=== PATIENT | female | born 1950 | race Caucasian/White ===

== ENCOUNTER 2018-10-30 05:25 | Inpatient (IN) | payer MEDICARE ==
[2018-10-30 06:44] LABS: #Eosinphils 0.1 thou/uL (0.0-0.7); #Monocytes 0.5 thou/uL (0.11-0.59); #Neutrophils 6.6 thou/uL (1.40-6.50); %Basophils 0.5 % (0.0-1.0); %Eosinophils 1.1 % (0.0-10.0); %Lymphocytes 21.8 % (21.0-51.0); %Monocytes 5.8 % (0.0-10.0); %Neutrophils 70.8 % (42.0-75.0); Hemoglobin 12.9 g/dL (12.0-16.0); Mean Corpuscular HGB CONC 33.3 g/dL (32.0-36.0); Mean Platelet Volume 8.4 fL (7.4-10.4); Platelet Count 255 thou/uL (130-400); RBC Distribution Width 11.4 % (11.5-14.5); Red Blood Cell (RBC) Count 4.46 mill/uL (4.20-5.40); White Blood Cell (WBC) Count 9.3 thou/uL (4.8-10.8)
[2018-10-30 06:59] LABS: ALT (SGPT) 8 U/L (8-55); AST (SGOT) 14 U/L (5-34); Albumin 3.1 g/dL (3.4-4.8); Alkaline Phosphatase 82 U/L (40-150); Anion Gap 15 mmol/L (10-20); BUN (Urea Nitrogen) 8 mg/dL (9.8-20.1); Bilirubin, Total 0.6 mg/dL (0.2-1.2); Calc. Creatinine Clearance 0 mL/min (70-130); Calcium 8.7 mg/dL (7.8-10.44); Carbon Dioxide 28 mmol/L (23-31); Chloride 99 mmol/L (98-107); Estimated GFR-MDRD 70; Globulin 4.6 g/dL (2.4-3.5); Glucose 302 mg/dL (80-115); Potassium 3.6 mmol/L (3.5-5.1); Protein, Total 7.7 g/dL (6.0-8.3); Sodium 138 mmol/L (136-145)
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
[2018-10-30] MEDS ORDERED: Insulin Regular 300 UNITS/3 ML VIAL ONE (08:06)
[2018-10-30] MEDS ORDERED: Ketorolac Tromethamine 30 MG/ML VIAL ONE (08:30)
[2018-10-30] MEDS ORDERED: Fentanyl 100 MCG/2 ML VIAL ONE ×2 (09:06→11:24)
[2018-10-30] MEDS ORDERED: Rocuronium Bromide 10 MG/ML (10ML VIAL) ONE (10:02)
[2018-10-30] MEDS ORDERED: Succinylcholine Chloride 20 MG/ML 10 ml SYRINGE FS ONE (10:02)
[2018-10-30] MEDS ORDERED: Lidocaine 1% PF 5 ML VIAL ONE (10:02)
[2018-10-30] MEDS ORDERED: ePHEDrine 50 MG/ML VIAL ONE (10:02)
[2018-10-30] MEDS ORDERED: Glycopyrrolate 0.2 MG/ML 5 ML SYRINGE ONE (10:02)
[2018-10-30] MEDS ORDERED: PHENYLEPHRINE-NS 100 MCG/ML 10 ML SYRINGE ONE ×2 (10:02→10:34)
[2018-10-30] MEDS ORDERED: PROPOFOL 200 MG/20 ML VIAL ONE (10:02)
[2018-10-30] MEDS ORDERED: Phenylephrine HCL 10 MG/ML VIAL ONE (10:34)
[2018-10-30] MEDS ORDERED: Ondansetron ODT 4 MG TAB PO PRN (10:58)
[2018-10-30] MEDS ORDERED: Dextrose 50% Abboject 50 ML SYRINGE SLOW IVP PRN (10:58)
[2018-10-30] MEDS ORDERED: Ondansetron PF 4 MG/2 ML Vial IVP PRN (10:58)
[2018-10-30] MEDS ORDERED: Dextrose 5% in Water 1,000 ML IV PRN (10:58)
[2018-10-30] MEDS ORDERED: hydrALAZINE 20 MG/ML VIAL SLOW IVP PRN (10:58)
[2018-10-30] MEDS ORDERED: traMADol HCl 50 MG TAB PO PRN (11:03)
[2018-10-30] MEDS ORDERED: Promethazine HCl 25 MG/ML VIAL SLOW IVP PRN (11:12)
[2018-10-30] MEDS ORDERED: Morphine Sulfate 2 MG/ML SYRINGE SLOW IVP PRN (11:12)
[2018-10-30] MEDS ORDERED: Ondansetron HCl/PF 4 MG/2 ML Vial IVP PRN (11:12)
[2018-10-30] MEDS ORDERED: Promethazine HCl 25 MG/ML VIAL IM PRN (11:12)
[2018-10-30] MEDS ORDERED: HYDROmorphone 2 MG/ML VIAL SLOW IVP PRN (11:12)
--- NOTE | 2018-10-30 12:25 | OP ---
DATE OF PROCEDURE: 10/30/2018 PREOPERATIVE DIAGNOSES: Acute cholecystitis, cholelithiasis, morbid obesity, sleep apnea, abnormal preoperative EKG. POSTOPERATIVE DIAGNOSES: Acute cholecystitis, cholelithiasis, morbid obesity, sleep apnea, abnormal preoperative EKG, markedly scarred gallbladder. PROCEDURE PERFORMED: Laparoscopic video cholecystectomy, #19 Gold round HANSA drain. ANESTHESIA: General, local 0.5% Marcaine with epinephrine 30 mL. DESCRIPTION OF PROCEDURE: The patient was taken to the operating room where under general anesthesia, abdomen was prepared with ChloraPrep and draped in routine fashion. Local anesthetic was infiltrated in the skin and subcutaneous tissue about each port site. Supraumbilical incision was made. Pneumoperitoneum to 15 mmHg was obtained with a Veress needle, replacing with a 5 port, video laparoscope inserted. A right subxiphoid incision was made and an 11 port placed. Right subcostal incision was made, midclavicular and anterior axillary lines, a 5 port was placed. Liver appeared to be slightly fatty, but normal otherwise. There was an acute inflammatory action with omentum adherent to the gallbladder. This was a very difficult dissection and it was tightly scarred. Careful dissection revealed the gallbladder fundus, which was hard and firm. It was grasped at the cephalad. Careful dissection was carried down to the infundibulum, where there was intense inflammatory reaction. I carefully dissected free around the gallbladder side, free inflammatory reactions. I did identify the gallbladder well away from the maxwell hepatis and careful dissection revealed the cystic duct, where clip was applied and careful dissection freed the gallbladder from the gallbladder bed using cautery. Good hemostasis was obtained with the cautery. Gallbladder removed in EndoBag. Area was irrigated, irrigant evacuated. Dilcia applied. #19 Gold HANSA drain placed through the lateral port site and secured with 2 sutures of 3-0 nylon. Pneumoperitoneum evacuated. All instruments were removed. All skin incisions were approximated with subdural 4-0 Monocryl after subxiphoid fascia was approximated with 0 Vicryl UR needle. Job ID: [id number]
[2018-10-30 13:16] VITALS: BMI 57.2
[2018-10-30] MEDS: traMADol HCl 50 MG TAB PO PRN ×2 (14:16→19:38)
[2018-10-30] MEDS: Lactated Ringer's 1,000 ML IV SCH ×2 (14:16→18:33)
[2018-10-30] MEDS: Ibuprofen 600 MG TAB PO PRN (16:13)
[2018-10-30] MEDS: metFORMIN 500 MG TAB PO SCH (16:13)
[2018-10-30] MEDS: HumaLOG 300 UNITS/3 ML VIAL SC PRN ×2 (16:18→21:25)
--- NOTE | 2018-10-30 16:34 | RAD ---
PA AND LATERAL CHEST: History: Chest pain. FINDINGS: The heart is enlarged. The lungs are expanded without lobar consolidation, pneumothoraces or pleural effusions. There is no evidence of lu pulmonary edema. There are mild degenerative changes in the spine. IMPRESSION: Cardiomegaly. POS: JEFFH
[2018-10-30] MEDS: Enoxaparin Sodium 40 MG/0.4 ML SYRINGE SC SCH ×2 (21:24→21:33)
[2018-10-30] MEDS: Famotidine 20 MG TAB PO SCH (21:24)
[2018-10-30] MEDS: Rosuvastatin 10 MG TAB PO SCH (21:24)
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
[2018-10-31] MEDS: Lactated Ringer's 1,000 ML IV SCH ×3 (03:20→22:45)
[2018-10-31] MEDS: traMADol HCl 50 MG TAB PO PRN ×2 (03:21→10:31)
[2018-10-31 05:10] LABS: ALT (SGPT) 13 U/L (8-55); AST (SGOT) 24 U/L (5-34); Albumin 2.6 g/dL (3.4-4.8); Alkaline Phosphatase 66 U/L (40-150); Anion Gap 13 mmol/L (10-20); BUN (Urea Nitrogen) 6 mg/dL (9.8-20.1); Bilirubin, Total 0.7 mg/dL (0.2-1.2); Calc. Creatinine Clearance 168 mL/min (70-130); Calcium 8.1 mg/dL (7.8-10.44); Carbon Dioxide 26 mmol/L (23-31); Chloride 102 mmol/L (98-107); Estimated GFR-MDRD 80; Glucose 270 mg/dL (80-115); Potassium 3.8 mmol/L (3.5-5.1); Protein, Total 6.6 g/dL (6.0-8.3); Sodium 137 mmol/L (136-145)
[2018-10-31 05:16] LABS: Band 1 % (5-11); Hemoglobin 10.9 g/dL (12.0-16.0); Hypochromia SLIGHT = 6-15 cells (100X) (0-5/hpf); Lymphocytes 12 % (21-51); MDiff Complete? YES; Mean Corpuscular HGB CONC 33.4 g/dL (32.0-36.0); Mean Corpuscular Hemoglobin 29.7 pg (27.0-31.0); Mean Corpuscular Volume 88.8 fL (78.0-98.0); Mean Platelet Volume 9.2 fL (7.4-10.4); Monocytes 1 % (0-10); Neutrophil 86 % (42-75); Platelet Count 200 thou/uL (130-400); Platelet Morphology Comment Appears Adequate; RBC Distribution Width 11.6 % (11.5-14.5); Red Blood Cell (RBC) Count 3.67 mill/uL (4.20-5.40); White Blood Cell (WBC) Count 12.1 thou/uL (4.8-10.8)
[2018-10-31] MEDS: HumaLOG 300 UNITS/3 ML VIAL SC PRN ×2 (05:55→16:12)
[2018-10-31] MEDS: metFORMIN 500 MG TAB PO SCH ×2 (08:28→16:00)
[2018-10-31] MEDS: Famotidine 20 MG TAB PO SCH ×2 (08:29→21:09)
[2018-10-31] MEDS: Aspirin 81 mg Enteric Coated Tablet PO SCH (08:29)
--- NOTE | 2018-10-31 10:07 | PDOC.PN ---
- Subjective Encounter Start Date: 10/31/18 Encounter Start Time: 08:50 -: old records requested/rev Patient seen and examined. No new complaints. No overnight events - Objective MAR Reviewed: Yes Vital Signs & Weight: Vital Signs (12 hours) Temp Pulse Resp BP Pulse Ox 10/31/18 07:45 98.5 F 100 16 153/88 H 93 L 10/31/18 04: 97.8 F 98 20 153/93 H 96 10/31/18 04:14 98 10/31/18 03:30 94 L 10/31/18 03:03 95 10/31/18 00:16 98.8 F 103 H 20 138/73 95 Weight Weight 313 lb 0.902 oz I&O: 10/30/18 10/31/18 11/01/18 06:59 06:59 06:59 Intake Total 2740 Output Total 315 Balance 2425 Result Diagrams: 10/31/18 04:35 10/31/18 04:35 Additional Labs: Accuchecks 10/31/18 10/30/18 10/30/18 05:33 20:48 15:37 POC Glucose 286 H 223 H 279 H 10/30/18 10/30/18 10/30/18 11:34 10:31 09:51 POC Glucose 194 H 233 H 303 H Radiology Reviewed by me: Yes (echo reviewed) Phys Exam - Physical Examination Constitutional: NAD HEENT: PERRLA, moist MMs, sclera anicteric Neck: no JVD, supple Respiratory: no wheezing, no rales, no rhonchi Cardiovascular: RRR, no significant murmur, no rub Gastrointestinal: soft, no distention, positive bowel sounds drain+ morbid obesity+ Musculoskeletal: no edema, pulses present Neurological: non-focal, normal sensation, moves all 4 limbs Lymphatic: no nodes Psychiatric: normal affect, A&O x 3 Skin: no rash, normal turgor Dx/Plan (1) Cholecystitis with cholelithiasis Code(s): K80.10 - CALCULUS OF GALLBLADDER W CHRONIC CHOLECYST W/O OBSTRUCTION Status: Acute (2) S/P laparoscopic cholecystectomy Code(s): Z90.49 - ACQUIRED ABSENCE OF OTHER SPECIFIED PARTS OF DIGESTIVE TRACT Status: Acute (3) Asthma Code(s): J45.909 - UNSPECIFIED ASTHMA, UNCOMPLICATED Status: Chronic (4) Diabetes type 2, controlled Code(s): E11.9 - TYPE 2 DIABETES MELLITUS WITHOUT COMPLICATIONS Status: Chronic (5) Hypertension Code(s): I10 - ESSENTIAL (PRIMARY) HYPERTENSION Status: Chronic (6) Morbid obesity with BMI of 50.0-59.9, adult Code(s): E66.01 - MORBID (SEVERE) OBESITY DUE TO EXCESS CALORIES; Z68.43 - BODY MASS INDEX (BMI) 50-59.9, ADULT Status: Chronic - Plan cont current plan of care, continue antibiotics * medication reviewed as below * symptomatic treatment * continue levaquin * pain control. * start ambulating with walking program * discharge planning * drain care as per surgeon * medically stable for now Review of Systems - Review of Systems ENT: negative: Ear Pain, Ear Discharge, Nose Pain, Nose Discharge, Nose Congestion, Mouth Pain, Mouth Swelling, Throat Pain, Throat Swelling, Other Respiratory: negative: Cough, Dry, Shortness of Breath, Hemoptysis, SOB with Excertion, Pleuritic Pain, Sputum, Wheezing Cardiovascular: negative: chest pain, palpitations, orthopnea, paroxysmal nocturnal dyspnea, edema, light headedness, other Gastrointestinal: negative: Nausea, Vomiting, Abdominal Pain, Diarrhea, Constipation, Melena, Hematochezia, Other Genitourinary: negative: Dysuria, Frequency, Incontinence, Hematuria, Retention , Other Musculoskeletal: negative: Neck Pain, Shoulder Pain, Arm Pain, Back Pain, Hand Pain, Leg Pain, Foot Pain, Other Skin: negative: Rash, Lesions, Son, Bruising, Other - Medications/Allergies Allergies/Adverse Reactions: Allergies Allergy/AdvReac Type Severity Reaction Status Date / Time codeine Allergy Hives Verified 10/30/18 13:17 Medications: Current Medications Albuterol/Ipratropium (Duoneb) 3 ml EZPAP [id number] PRN PRN Reason: SOB &/or Wheezing Last Admin: 10/31/18 04:14 Dose: 3 ml Aspirin (Ecotrin) 81 mg PO DAILY [facility] Last Admin: 10/31/18 08:29 Dose: 81 mg Dextrose/Water (Dextrose 50%) 25 gm SLOW IVP PRN PRN PRN Reason: Hypoglycemia Enoxaparin Sodium (Lovenox) 40 mg SC 2100 [facility] Last Admin: 10/30/18 21:33 Dose: Not Given Famotidine (Pepcid) 20 mg PO BID [facility] Last Admin: 10/31/18 08:29 Dose: 20 mg Glucagon (Glucagon) 1 mg IM PRN PRN PRN Reason: Hypoglycemia Hydralazine HCl (Apresoline) 10 mg SLOW IVP Q4H PRN PRN Reason: SBP > 170 or DBP > 100 Dextrose/Water (D5w) 1,000 mls @ 0 mls/hr IV .Q0M PRN PRN Reason: Hypoglycemia Lactated Ringer's (Lactated Ringer's) 1,000 mls @ 120 mls/hr IV .Q8H20M [facility] Last Admin: 10/31/18 08:29 Dose: Not Given Levofloxacin 750 mg/ Device 150 mls @ 100 mls/hr IVPB 0600 [facility] Last Admin: 10/31/18 05:42 Dose: 150 mls Ibuprofen (Motrin) 600 mg PO Q6H PRN PRN Reason: Mild Pain (1-3) Last Admin: 10/30/18 16:13 Dose: 600 mg Insulin Human Lispro (Humalog) 0 units SC .AGGRESSIVE SLIDING PRN PRN Reason: Aggressive Correctional Scale Last Admin: 10/31/18 05:55 Dose: 9 unit Metformin HCl (Glucophage) 1,000 mg PO BID[facility] Last Admin: 10/31/18 08:28 Dose: 1,000 mg Ondansetron HCl (Zofran Odt) 4 mg PO Q6H PRN PRN Reason: Nausea/Vomiting Ondansetron HCl (Zofran) 4 mg IVP Q6H PRN PRN Reason: Nausea Rosuvastatin Calcium (Crestor) 10 mg PO [facility] Last Admin: 10/30/18 21:24 Dose: 10 mg Sodium Chloride (Flush - Normal Saline) 10 ml IVF PRN PRN PRN Reason: Saline Flush Tramadol HCl (Ultram) 50 mg PO Q6H PRN PRN Reason: Moderate Pain (4-6) Tramadol HCl (Ultram) 100 mg PO Q6H PRN PRN Reason: Severe Pain (7-10) Last Admin: 10/31/18 03:21 Dose: 100 mg
[2018-10-31] MEDS ORDERED: Insulin Glargine 8 UNITS in Pre-Filled Syringe 1 EACH SC SCH ×2 (11:45→21:00)
--- NOTE | 2018-10-31 14:35 | PRG ---
DATE OF SERVICE: 10/31/2018 SUBJECTIVE: Ms. Ontiveros is a 68-year-old morbidly obese woman, who is postoperative day #1, status post laparoscopic cholecystectomy. The patient is awake and alert today. She reports better pain control. She is quite fatigued, requiring 1 to 2 people for assistance getting out of bed. She admits to residual nausea, but has not had any emesis since surgery. OBJECTIVE: VITAL SIGNS: Today include blood pressure 153/88, pulse 100, respiratory rate 16, temperature 98.5 degrees Fahrenheit, and oxygen saturation 93% on room air. HEENT: Pupils are equal, round, and reactive to light and accommodation. HEART: Reveals regular rate and rhythm. LUNGS: Clear to auscultation bilaterally. Breathing, regular and nonlabored. ABDOMEN: Soft and obese with incisional tenderness to palpation. No gross rebound tenderness present. All incisions remain intact, clean, and dry. Dg-Durham drain placed in surgery has returned approximately 300 mL of serosanguineous clearly nonbilious fluid. NEUROLOGIC: Reveals no focal deficits present. LABORATORY FINDINGS: Today include CBC with 12,100 white blood cells and hemoglobin and hematocrit of 10.9 and 32.6 respectively. Platelet count is 200,000. Metabolic profile; sodium 137, potassium 3.8, chloride is 102, bicarb 26, BUN 6, creatinine 0.73, and glucose 270. AST and ALT normal at 24 and 13 respectively. Total bilirubin is also normal at 0.7. IMPRESSION: 1. Postoperative day #1 status post laparoscopic cholecystectomy. 2. Stable acute hyperglycemia. History of type 2 diabetes mellitus. 3. Stable postoperative acute blood loss anemia. PLAN: Increase activity per Physical Therapy. We will ask ed case manager to evaluate the patient for possible discharge to rehabilitation. Above findings and plan discussed with the patient, who indicates understanding information given. I have answered her questions. Job ID: [id number]
[2018-10-31] MEDS: Ibuprofen 600 MG TAB PO PRN (21:09)
[2018-10-31] MEDS: Rosuvastatin 10 MG TAB PO SCH (21:09)
[2018-10-31] MEDS: Enoxaparin Sodium 40 MG/0.4 ML SYRINGE SC SCH (22:46)
[2018-11-01] MEDS: Lactated Ringer's 1,000 ML IV SCH ×2 (05:05→13:18)
[2018-11-01] MEDS: HumaLOG 300 UNITS/3 ML VIAL SC PRN ×4 (05:26→20:48)
[2018-11-01] MEDS ORDERED: cloNIDine 0.1 MG TAB PO PRN (08:32)
[2018-11-01] MEDS ORDERED: Insulin Glargine 8 UNITS in Pre-Filled Syringe 1 EACH SC SCH (09:00)
[2018-11-01] MEDS: Famotidine 20 MG TAB PO SCH ×2 (09:36→20:47)
[2018-11-01] MEDS: Aspirin 81 mg Enteric Coated Tablet PO SCH (09:36)
[2018-11-01] MEDS: metFORMIN 500 MG TAB PO SCH (09:38)
[2018-11-01] MEDS: Lisinopril 5 MG TAB PO SCH ×2 (09:39→20:53)
[2018-11-01] MEDS: Ibuprofen 600 MG TAB PO PRN (16:05)
--- NOTE | 2018-11-01 16:42 | PDOC.PN ---
- Subjective Encounter Start Date: 11/01/18 Encounter Start Time: 16:40 Subjective: s/p lap ayan & feels well. able to eat w/o abd pain or nausea -: at bedside & all Qs answered - Objective Resuscitation Status - Order Detail: 10/31/18 10:06 Resuscitation Status Routine Resuscitation Status: FULL: Full Resuscitation MAR Reviewed: Yes Vital Signs & Weight: Vital Signs (12 hours) Temp Pulse Pulse Pulse Resp BP BP 11/01/18 15:57 98.5 F 100 20 11/01/18 11:14 98.5 F 85 16 11/01/18 10:23 86 97 139/71 187/91 H 11/01/18 09:39 93 11/01/18 08:00 11/01/18 07:51 98.4 F 93 18 BP Pulse Ox Pulse Ox Pulse Ox 11/01/18 15:57 175/82 H 91 L 11/01/18 11:14 137/85 91 L 11/01/18 10:23 96 96 11/01/18 09:39 11/01/18 08:00 92 L 11/01/18 07:51 162/99 H 92 L Weight Weight 313 lb 0.902 oz I&O: 10/31/18 11/01/18 11/02/18 06:59 06:59 06:59 Intake Total 2740 1250 Output Total 315 110 Balance 2425 1140 Result Diagrams: 10/31/18 04:35 10/31/18 04:35 Additional Labs: Accuchecks 11/01/18 11/01/18 11/01/18 15:45 11:13 05:26 POC Glucose 194 H 230 H 220 H 10/31/18 21:03 POC Glucose 175 H Laboratory Tests 10/30/18 10/31/18 06:38 04:35 WBC 9.3 12.1 H Hgb 12.9 10.9 L Phys Exam - Physical Examination Constitutional: NAD HEENT: PERRLA, moist MMs, sclera anicteric, oral pharynx no lesions Neck: no nodes, no JVD, supple, full ROM Respiratory: no wheezing, no rales, no rhonchi, clear to auscultation bilateral Cardiovascular: RRR, no significant murmur, no rub Gastrointestinal: soft, non-tender, no distention, positive bowel sounds morbidly obese.incision site looks clean Musculoskeletal: no edema, pulses present Neurological: non-focal, normal sensation, moves all 4 limbs Psychiatric: normal affect, A&O x 3 Dx/Plan (1) Cholecystitis with cholelithiasis Code(s): K80.10 - CALCULUS OF GALLBLADDER W CHRONIC CHOLECYST W/O OBSTRUCTION Status: Acute Plan: CONTINUE EMPIRIC ANTIBIOTICS (2) Postoperative anemia Code(s): D64.9 - ANEMIA, UNSPECIFIED Status: Acute Comment: Monitor.H/O GIB per Pt.Careful w ASA. (3) S/P laparoscopic cholecystectomy Code(s): Z90.49 - ACQUIRED ABSENCE OF OTHER SPECIFIED PARTS OF DIGESTIVE TRACT Status: Acute Comment: POST-OP CARE (4) Asthma Code(s): J45.909 - UNSPECIFIED ASTHMA, UNCOMPLICATED Status: Chronic Comment : STABLE (5) Diabetes type 2, controlled Code(s): E11.9 - TYPE 2 DIABETES MELLITUS WITHOUT COMPLICATIONS Status: Chronic Comment: HOLD METFORMIN TO AVOID ISAIAH/ACIDOSIS.CONT ISS AND ACCUCHECKS ACHS (6) Hypertension Code(s): I10 - ESSENTIAL (PRIMARY) HYPERTENSION Status: Chronic Comment: POORLY CONTROLLED. ADD LISINOPRIL GIVEN H/O DM2 AND MONITOR (7) Morbid obesity with BMI of 50.0-59.9, adult Code(s): E66.01 - MORBID (SEVERE) OBESITY DUE TO EXCESS CALORIES; Z68.43 - BODY MASS INDEX (BMI) 50-59.9, ADULT Status: Chronic (8) H/O: GI bleed Code(s): Z87.19 - PERSONAL HISTORY OF OTHER DISEASES OF THE DIGESTIVE SYSTEM Status: Chronic Comment: as per pt -due to ASA per pt - Plan plan discussed w/ family, continue antibiotics, PT/OT, respiratory therapy, incentive spirometry, out of bed/ambulate, DVT proph w/SCDs add PPI .monitor H/H. -: am labs -: add lisinopril for as BP still high.pt educated -: Hd stable otherwise. -: IM team will follow.requesting HH-will place CM consult * . Review of Systems - Review of Systems Constitutional: weakness, malaise. negative: fever, chills, sweats, other ENT: negative: Ear Pain, Ear Discharge, Nose Pain, Nose Discharge, Nose Congestion, Mouth Pain, Mouth Swelling, Throat Pain, Throat Swelling, Other Respiratory: negative: Cough, Dry, Shortness of Breath, Hemoptysis, SOB with Excertion, Pleuritic Pain, Sputum, Wheezing Cardiovascular: negative: chest pain, palpitations, orthopnea, paroxysmal nocturnal dyspnea, edema, light headedness, other Gastrointestinal: negative: Nausea, Vomiting, Abdominal Pain, Diarrhea, Constipation, Melena, Hematochezia, Other Genitourinary: negative: Dysuria, Frequency, Incontinence, Hematuria, Retention , Other Musculoskeletal: negative: Neck Pain, Shoulder Pain, Arm Pain, Back Pain, Hand Pain, Leg Pain, Foot Pain, Other Neurological: negative: Weakness, Numbness, Incoordination, Change in Speech, Confusion, Seizures, Other - Medications/Allergies Allergies/Adverse Reactions: Allergies Allergy/AdvReac Type Severity Reaction Status Date / Time codeine Allergy Hives Verified 10/30/18 13:17 Medications: Current Medications Albuterol/Ipratropium (Duoneb) 3 ml EZPAP [id number] PRN PRN Reason: SOB &/or Wheezing Last Admin: 10/31/18 14:16 Dose: 3 ml Aspirin (Ecotrin) 81 mg PO DAILY [facility] Last Admin: 11/01/18 09:36 Dose: 81 mg Clonidine (Catapres) 0.1 mg PO Q4H PRN PRN Reason: SBP>160 Dextrose/Water (Dextrose 50%) 25 gm SLOW IVP PRN PRN PRN Reason: Hypoglycemia Enoxaparin Sodium (Lovenox) 40 mg SC 2100 [facility] Last Admin: 10/31/18 22:46 Dose: Not Given Famotidine (Pepcid) 20 mg PO BID [facility] Last Admin: 11/01/18 09:36 Dose: 20 mg Glucagon (Glucagon) 1 mg IM PRN PRN PRN Reason: Hypoglycemia Hydralazine HCl (Apresoline) 10 mg SLOW IVP Q4H PRN PRN Reason: SBP > 170 or DBP > 100 Dextrose/Water (D5w) 1,000 mls @ 0 mls/hr IV .Q0M PRN PRN Reason: Hypoglycemia Lactated Ringer's (Lactated Ringer's) 1,000 mls @ 120 mls/hr IV .Q8H20M [facility] Last Admin: 11/01/18 13:18 Dose: Not Given Levofloxacin 750 mg/ Device 150 mls @ 100 mls/hr IVPB 0600 [facility] Last Admin: 11/01/18 05:22 Dose: 150 mls Insulin Glargine 10 units/ (Miscellaneous Medication) 0.1 mls @ 0 mls/hr SC HS [facility] Insulin Glargine 10 units/ (Miscellaneous Medication) 0.1 mls @ 0 mls/hr SC QAM [facility] Ibuprofen (Motrin) 600 mg PO Q6H PRN PRN Reason: Mild Pain (1-3) Last Admin: 11/01/18 16:05 Dose: 600 mg Insulin Human Lispro (Humalog) 0 units SC .AGGRESSIVE SLIDING PRN PRN Reason: Aggressive Correctional Scale Last Admin: 11/01/18 16:05 Dose: 3 unit Lisinopril (Zestril) 5 mg PO BID [facility] Last Admin: 11/01/18 09:39 Dose: 5 mg Ondansetron HCl (Zofran Odt) 4 mg PO Q6H PRN PRN Reason: Nausea/Vomiting Ondansetron HCl (Zofran) 4 mg IVP Q6H PRN PRN Reason: Nausea Rosuvastatin Calcium (Crestor) 10 mg PO HS [facility] Last Admin: 10/31/18 21:09 Dose: 10 mg Sodium Chloride (Flush - Normal Saline) 10 ml IVF PRN PRN PRN Reason: Saline Flush Tramadol HCl (Ultram) 50 mg PO Q6H PRN PRN Reason: Moderate Pain (4-6) Last Admin: 10/31/18 21:10 Dose: 50 mg Tramadol HCl (Ultram) 100 mg PO Q6H PRN PRN Reason: Severe Pain (7-10) Last Admin: 10/31/18 10:31 Dose: 100 mg
[2018-11-01] MEDS: Rosuvastatin 10 MG TAB PO SCH (20:47)
[2018-11-01] MEDS: Enoxaparin Sodium 40 MG/0.4 ML SYRINGE SC SCH (20:49)
[2018-11-01] MEDS ORDERED: Insulin Glargine 10 UNITS in Pre-Filled Syringe 1 EACH SC SCH (21:00)
--- NOTE | 2018-11-01 21:42 | PRG ---
DATE OF SERVICE: 11/01/2018 This is Edwin Nathan PA-C dictating a report for Michael Krishnamurthy DO. SUBJECTIVE: The patient is currently on the surgical floor. She is status post laparoscopic cholecystectomy, postop day #2. The patient had no issues overnight. She is tolerating a diet. Her pain is controlled. She has been ambulating with Physical Therapy. OBJECTIVE: VITAL SIGNS: Temperature is 98.5, heart rate 85, blood pressure 137/85, respirations 16, and oxygen saturation 91% on room air. GENERAL: The patient is resting comfortably in bed. She is just returned from ambulating with therapy. HEENT: Unremarkable. LUNGS: The patient appears to be breathing without effort, in no distress and unlabored. ABDOMEN: Soft, flat, nontender. Her Dg-Durham drain has minimal amount of thin bloody fluid in it with a report of 110 mL for the previous 24 hours. EXTREMITIES: Neurovascularly intact x4. LABORATORY DATA AND IMAGING STUDIES: There are no labs or radiographs to review this morning. ASSESSMENT: Status post laparoscopic cholecystectomy, postoperative day 2. PLAN: Plan will be to discontinue her HANSA drain today and most likely discharge home tomorrow. The patient was in agreement with this plan. The evaluation and examination were done with Dr. Krishnamurthy this morning during rounds. Job ID: [id number]
[2018-11-02] MEDS: Lactated Ringer's 1,000 ML IV SCH ×2 (00:48→07:32)
[2018-11-02 04:50] LABS: #Eosinphils 0.1 thou/uL (0.0-0.7); #Lymphocytes 1.9 thou/uL (1.20-3.40); #Monocytes 0.7 thou/uL (0.11-0.59); #Neutrophils 6.6 thou/uL (1.40-6.50); %Basophils 0.1 % (0.0-1.0); %Eosinophils 1.4 % (0.0-10.0); %Lymphocytes 20.7 % (21.0-51.0); %Neutrophils 70.8 % (42.0-75.0); Hemoglobin 11.5 g/dL (12.0-16.0); Mean Corpuscular HGB CONC 32.5 g/dL (32.0-36.0); Mean Corpuscular Hemoglobin 28.8 pg (27.0-31.0); Mean Corpuscular Volume 88.5 fL (78.0-98.0); Platelet Count 208 thou/uL (130-400); RBC Distribution Width 11.7 % (11.5-14.5); Red Blood Cell (RBC) Count 3.98 mill/uL (4.20-5.40); White Blood Cell (WBC) Count 9.3 thou/uL (4.8-10.8)
[2018-11-02 05:03] LABS: Anion Gap 10 mmol/L (10-20); BUN (Urea Nitrogen) 5 mg/dL (9.8-20.1); Calc. Creatinine Clearance 175 mL/min (70-130); Calcium 8.5 mg/dL (7.8-10.44); Carbon Dioxide 29 mmol/L (23-31); Chloride 102 mmol/L (98-107); Estimated GFR-MDRD 83; Glucose 158 mg/dL (80-115); Potassium 3.3 mmol/L (3.5-5.1); Sodium 138 mmol/L (136-145)
[2018-11-02] MEDS: HumaLOG 300 UNITS/3 ML VIAL SC PRN (06:06)
--- NOTE | 2018-11-02 07:58 | PDOC.EVN ---
Event Note - Event Note Event Note: Chart reviewed. OK to DC from IM stand point. replace potassium prior to DC DC Med rec done.Started on lisinopril for high BP ia a diabetic ,w OP F/U w PCP recommendation .
[2018-11-02] MEDS ORDERED: Potassium Chloride 20 MEQ TAB PO SCH ×2 (08:00→12:00)
[2018-11-02] MEDS: Famotidine 20 MG TAB PO SCH (08:29)
[2018-11-02] MEDS: Aspirin 81 mg Enteric Coated Tablet PO SCH (08:29)
[2018-11-02] MEDS: Ibuprofen 600 MG TAB PO PRN (08:30)
[2018-11-02] MEDS: Lisinopril 5 MG TAB PO SCH (08:30)
[2018-11-02] MEDS ORDERED: Insulin Glargine 10 UNITS in Pre-Filled Syringe 1 EACH SC SCH (09:00)
[2018-11-02 11:34] VITALS: BP 165/96; TEMP 98.6
[2018-11-02] MEDS ORDERED: PROVENTIL INHALER 6.7 G (200 INHALATIONS) INH PRN (11:50)
[2018-11-02] MEDS: traMADol HCl 50 MG TAB PO PRN (12:29)
[2018-11-02] MEDS ORDERED: metFORMIN 500 MG TAB PO SCH (17:00)
--- NOTE | 2018-11-02 23:06 | DIS ---
DATE OF ADMISSION: 10/30/2018 DATE OF DISCHARGE: 11/02/2018 DISCHARGE PHYSICIAN: Dr. Krishnamurthy. CONSULTS: 1. Cardiology, Dr. Alves. 2. Hospitalist. PROCEDURES: 1. On 10/30/2018, chest x-ray, impression: Cardiomegaly. 2. On 10/30/2018, echocardiogram, impression: Ejection fraction visually estimated at 55% to 60%, normal size of left atrium, structurally normal mitral valve, mild tricuspid regurgitation. 3. On 10/30/2018, procedure: Laparoscopic video cholecystectomy with a #19 gold round HANSA drain. PRIMARY DIAGNOSIS: Cholecystitis, acute on chronic. SECONDARY DIAGNOSES: Sleep apnea, [id number] diabetes, hypertension , and metabolic syndrome. DISCHARGE MEDICATIONS: 1. Levaquin 500 mg p.o. daily for 7 days. 2. Lisinopril mg p.o. b.i.d., #60. 3. Crestor 10 mg p.o. nightly. 4. Florastor 250 mg p.o. daily. 5. ProAir as needed. 6. Metformin 1000 mg p.o. b.i.d. DISCONTINUED MEDICATIONS: None. HISTORY OF PRESENT ILLNESS AND HOSPITAL COURSE: A 68-year-old female is seen initially in [place] and was transferred to [facility]. The patient had a CT scan of her pelvis and abdomen in [place], and ultrasound revealing cholecystitis, cholelithiasis, normal bile duct caliber. Liver function tests were normal. The patient has been having intermittent biliary symptoms, right upper quadrant pain, back radiation for more than two years. The pain has become more intolerable, which made her present to the emergency room. The CAT scan revealed inflammatory changes, gallstones. The patient was taken to the OR by Dr. Mejia for laparoscopic cholecystectomy. The patient had no adverse events during her hospital course. The patient's HANSA drain was removed yesterday. The patient did receive electrolyte replacement during her hospital course. On the day of discharge, the patient was examined by Dr. Krishnamurthy. The patient's exam was unremarkable including cardiopulmonary and GI exam. The patient was deemed stable with stable vital signs on the day of discharge. DISPOSITION: Stable. DISCHARGE INSTRUCTIONS: 1. Location: Home. 2. Diet: Diabetic diet. 3. Activity: As tolerated. No heavy lifting for 2 weeks. FOLLOWUP: Follow up with Dr. Roberto, call for an appointment, needs to be seen in approximately 14 days. Job ID: [id number] [id number]
== END 2018-11-02 13:30 | disposition home or self-care (01) | DRG 418 ==
LOC: ERS 05:25 → SDC 09:01 → SURG B 12:50
PROVIDERS: ADMIT Specialist; ATTEND Specialist
PROC: 0FT44ZZ Resection of Gallbladder, Percutaneous Endoscopic Approach (ICD-10-PCS; principal; 2018-10-30)
DX: K80.12 Calculus of gallbladder with acute and chronic cholecystitis without obstruction (principal); Z68.43 Body mass index [BMI] 50.0-59.9, adult; D62 Acute posthemorrhagic anemia; G47.30 Sleep apnea, unspecified; I10 Essential (primary) hypertension; E88.81 Metabolic syndrome and other insulin resistance; J45.909 Unspecified asthma, uncomplicated; E11.65 Type 2 diabetes mellitus with hyperglycemia; E66.01 Morbid (severe) obesity due to excess calories; R94.31 Abnormal electrocardiogram [ECG] [EKG]; Z79.84 Long term (current) use of oral hypoglycemic drugs; Z90.49 Acquired absence of other specified parts of digestive tract; Z87.19 Personal history of other diseases of the digestive system
CPT/HCPCS: 36415; 36416; 71046; 80048; 80053; 85025; 88304; 93005; 93306; 94640; 96361; 96365; J0131; J1650; J1815; J1825; J1885; J1956; J2001; J2370; J2704; J3010; J3490; J7620